=== PATIENT | male | born 1960 | race Caucasian/White ===

== ENCOUNTER 2022-04-18 05:14 | Emergency (ER) | payer SELFPAY ==
[~2022-04-18] VITALS: Ht 177.8 cm; Wt 90.0 kg
[2022-04-18 06:45] VITALS: BP 115/77
[2022-04-18] MEDS ORDERED: NAPROXEN500 MG PO (06:54)
[2022-04-18 07:00] VITALS: BP 111/77
[2022-04-18] MEDS ORDERED: HYDROCO/APAP1 TA9 PO (07:03)
[2022-04-18 07:15] VITALS: BP 104/75
[2022-04-18 07:30] VITALS: BP 110/69
[2022-04-18 08:02] VITALS: BP 110/69
== END 2022-04-18 07:45 | disposition home or self-care (01) | DRG 563 ==
LOC: ED 05:14
PROC: 0RSWXZZ Reposition Right Finger Phalangeal Joint, External Approach (ICD-10-PCS; principal; 2022-04-18)
DX: S63.282A Dislocation of proximal interphalangeal joint of right middle finger, initial encounter (principal); S09.90XA Unspecified injury of head, initial encounter; F31.9 Bipolar disorder, unspecified; F17.200 Nicotine dependence, unspecified, uncomplicated; W19.XXXA Unspecified fall, initial encounter; Z87.820 Personal history of traumatic brain injury